=== PATIENT | male | born 1950 | race Caucasian/White ===

== ENCOUNTER 2023-10-06 17:43 | Inpatient (IN) | payer OTHER, SELFPAY ==
[2023-10-06] VITALS (30 sets, daily range): BP systolic 96–147; BP diastolic 64–99; BMI 26.0
--- NOTE | 2023-10-06 11:24 | ED.GENMED ---
History of Present Illness
<Juan Luis Wheat, DO - Last Filed: 10/08/23 14:57>
General
Chief Complaint: Heart Rate Problem
Source: patient
Exam Limitations: none
Time Seen by Provider: 10/06/23 11:10
Travel History
Have you had any contact with someone who has COVID-19?: No
Do you have any symptoms of coronavirus? Fever > 100 degrees, chills, cough, shortness of breath, sore throat, loss of taste or smell, muscle aches, or headache?: No
History of Present Illness
History of Present Illness:
See MDM
Past History
<Juan Luis Wheat, DO - Last Filed: 10/08/23 14:57>
Past History
ED Past Medical History: HTN
ED Past Surgical History: None
Social History
Tobacco: Former smoker
Alcohol: None
Phy Exam
<Juan Luis Wheat, DO - Last Filed: 10/08/23 14:57>
Physical Exam
Physical Exam:
See MDM
Scores
<Juan Luis Wheat, DO - Last Filed: 10/08/23 14:57>
[id number] Score for Afib Stroke Risk
Age in Years (65=0, 65-74=1, >/=75=2): 65-74
Sex (Female=+1): Male
Congestive Heart Failure History (Yes=+1): No
Hypertension History (Yes=+1): Yes
Stroke/TIA/Thromboembolism History (Yes=+2): No
Vascular Disease History (Yes=+1): No
Diabetes Mellitus (Yes=+1): No
Score: 2
Anticoagulation Recommendations: Recommend anticoagulation (as validated in nonvalvular fib)
<Ann Conklin MD - Last Filed: 10/06/23 16:52>
[id number] Score for Afib Stroke Risk
Score: 2
Anticoagulation Recommendations: Recommend anticoagulation (as validated in nonvalvular fib)
Course
<Juan Luis Wheat, DO - Last Filed: 10/08/23 14:57>
Orders/Labs/Results
Orders:
Orders
10/06/23 10:59
Electrocardiogram (*1) Urgent
Reason for Study: Tachycardia
10/06/23 11:00
EKG- Treatment ONCE
10/06/23 11:18
0.9% Sodium Chloride 1000 ml [Nss] 1,000 ml IV BOLUS
Diltiazem 125 mg/125 ml Nss [Cardizem] 125 mg in 125 ml IV NOW
Initial dose in mg/hr, then titrate:: 5
Titrate to keep:: Heart rate 80-100 bpm
Titrate by mg/hr:: 5 mg/hr
Frequency of titrations (minutes):: 15
Maximum dose in mg/hr:: 15
Diltiazem HCl [Cardizem] 20 mg IV NOW STA
10/06/23 11:24
Complete Blood Count/With Diff Urgent
Comprehensive Metabolic Panel Urgent
Magnesium Urgent
Protime/PTT Urgent
TSH Reflex To Free T4 Urgent
10/06/23 12:34
Diltiazem HCl [Cardizem] 20 mg IV NOW STA
10/06/23 13:38
Consult Cardiology [CARDIOLOGY CONSULT] Urgent
Consulting Provider: Scotty Rizzo
Was physician already notified: Yes
10/06/23 13:48
Metoprolol Xl [Toprol Xl] 25 mg PO NOW STA
10/06/23 Dinner
Regular
At Your Request: Full Participation
10/06/23 16:38
Admit/Transfer Patient As Directed
Co-Sign Provider:
Level of Care: Inpatient admission
Assign to:: IVU
Physician / Group: DCA
Diagnosis: atrial flutter w/ RVR
Reason for Hospitalization: atrial flutter w/ RVR
Expected length of stay greater than two midnights?: Yes
ELOS- Estimated Length of Stay in days: 2
I certify the patient meets the requirements for IP care: Yes
10/06/23 16:41
Code Status As Directed
Resuscitation Status: Full Code
10/06/23 17:00
Diltiazem 125 mg/125 ml Nss [Cardizem] 125 mg in 125 ml IV PER PROTOCOL
Initial dose in mg/hr, then titrate:: 5
Titrate to keep:: Heart rate 80-100 bpm
Titrate by mg/hr:: 5 mg/hr
Frequency of titrations (minutes):: 15
Maximum dose in mg/hr:: 15
10/06/23 20:59
Acetaminophen [Tylenol] 650 mg PO Q4HPRN PRN
Apixaban [Eliquis] 5 mg PO BID
10/06/23 20:59
Activity As Directed
Activity Level: Ambulate
Bathroom Privileges
Vital Signs As Directed
Frequency: Per unit guidelines
Weight As Directed
Frequency: Daily
10/06/23 22:00
Atorvastatin [Lipitor] 20 mg PO HS
Losartan [Cozaar] 100 mg PO HS
10/07/23 04:46
Basic Metabolic Panel IN AM
10/07/23 06:00
Echo Andi W/echo Doppler (#17) IN AM
Reason for Study: atrial flutter
Cardiology Consult: Scotty Rizzo
Comment: ANDI/CV
NPO
Allow oral meds: Yes
Allow clear liquids: No
NPO with Ice Chips: No
Abnormal Lab Results
10/06/23
11:24
MCH 33.0 H pg
(27.0-31.0)
MPV 11.4 H fL
(7.4-10.4)
Glucose 117 H mg/dl
(70-99)
10/06/23 11:24
10/06/23 11:24
Vital Signs
Initial and Last Documented VS:
Initial Vital Signs
Temp Pulse Resp BP Pulse Ox
99.4 F 134 18 147/94 96
10/06/23 10:57 10/06/23 10:57 10/06/23 10:57 10/06/23 10:57 10/06/23 10:57
Last Documented Vital Signs
Temp Pulse Resp BP Pulse Ox
97.9 F 69 16 115/82 97
10/07/23 12:57 10/07/23 15:16 10/07/23 12:57 10/07/23 15:16 10/07/23 12:57
<Ann Conklin MD - Last Filed: 10/06/23 16:52>
Orders/Labs/Results
Orders:
Orders
10/06/23 10:59
Electrocardiogram (*1) Urgent
Reason for Study: Tachycardia
10/06/23 11:00
EKG- Treatment ONCE
10/06/23 11:18
0.9% Sodium Chloride 1000 ml [Nss] 1,000 ml IV BOLUS
Diltiazem 125 mg/125 ml Nss [Cardizem] 125 mg in 125 ml IV NOW
Initial dose in mg/hr, then titrate:: 5
Titrate to keep:: Heart rate 80-100 bpm
Titrate by mg/hr:: 5 mg/hr
Frequency of titrations (minutes):: 15
Maximum dose in mg/hr:: 15
Diltiazem HCl [Cardizem] 20 mg IV NOW STA
10/06/23 11:24
Complete Blood Count/With Diff Urgent
Comprehensive Metabolic Panel Urgent
Magnesium Urgent
Protime/PTT Urgent
TSH Reflex To Free T4 Urgent
10/06/23 12:34
Diltiazem HCl [Cardizem] 20 mg IV NOW STA
10/06/23 13:38
Consult Cardiology [CARDIOLOGY CONSULT] Urgent
Consulting Provider: Scotty Rizzo
Was physician already notified: Yes
10/06/23 13:48
Metoprolol Xl [Toprol Xl] 25 mg PO NOW STA
10/06/23 Dinner
Regular
At Your Request: Full Participation
10/06/23 16:38
Admit/Transfer Patient As Directed
Co-Sign Provider:
Level of Care: Inpatient admission
Assign to:: IVU
Physician / Group: DCA
Diagnosis: atrial flutter w/ RVR
Reason for Hospitalization: atrial flutter w/ RVR
Expected length of stay greater than two midnights?: Yes
ELOS- Estimated Length of Stay in days: 2
I certify the patient meets the requirements for IP care: Yes
10/06/23 16:41
Code Status As Directed
Resuscitation Status: Full Code
10/06/23 17:00
Diltiazem 125 mg/125 ml Nss [Cardizem] 125 mg in 125 ml IV PER PROTOCOL
Initial dose in mg/hr, then titrate:: 5
Titrate to keep:: Heart rate 80-100 bpm
Titrate by mg/hr:: 5 mg/hr
Frequency of titrations (minutes):: 15
Maximum dose in mg/hr:: 15
10/06/23 20:59
Acetaminophen [Tylenol] 650 mg PO Q4HPRN PRN
Apixaban [Eliquis] 5 mg PO BID
10/06/23 20:59
Activity As Directed
Activity Level: Ambulate
Bathroom Privileges
Vital Signs As Directed
Frequency: Per unit guidelines
Weight As Directed
Frequency: Daily
10/06/23 22:00
Atorvastatin [Lipitor] 20 mg PO HS
Losartan [Cozaar] 100 mg PO HS
10/07/23 04:46
Basic Metabolic Panel IN AM
10/07/23 06:00
Echo Andi W/echo Doppler (#17) IN AM
Reason for Study: atrial flutter
Cardiology Consult: Scotty Rizzo
Comment: ANDI/CV
NPO
Allow oral meds: Yes
Allow clear liquids: No
NPO with Ice Chips: No
Abnormal Lab Results
10/06/23
11:24
MCH 33.0 H pg
(27.0-31.0)
MPV 11.4 H fL
(7.4-10.4)
Glucose 117 H mg/dl
(70-99)
10/06/23 11:24
10/06/23 11:24
Vital Signs
Initial and Last Documented VS:
Initial Vital Signs
Temp Pulse Resp BP Pulse Ox
99.4 F 134 18 147/94 96
10/06/23 10:57 10/06/23 10:57 10/06/23 10:57 10/06/23 10:57 10/06/23 10:57
Last Documented Vital Signs
Temp Pulse Resp BP Pulse Ox
97.9 F 69 16 115/82 97
10/07/23 12:57 10/07/23 15:16 10/07/23 12:57 10/07/23 15:16 10/07/23 12:57
<Juan Luis Wheat, DO - Last Filed: 10/08/23 14:57>
MDM/Problems Addressed
Differential Diagnosis Includes:
HPI and MDM Narrative:
72-year-old male presenting with asymptomatic tachycardia. Patient states he routinely monitors his vital signs before he goes to bed. Since Friday night, he noted that his heart rate was in the 130s. He denies chest pain or shortness of
breath. Patient denies prior history of A-fib or a flutter and denies prior cardiac evaluation. Patient is very well-appearing nontoxic. Screening EKG confirms a flutter.
Given that he is symptom-free, doubt ACS. Will place on Cardizem bolus and Cardizem drip and look for metabolic disturbances
Physical exam
General: Well appearing and non-toxic
HEENT: protecting airway
Neck: appears supple
CV: No evidence of cyanosis. Tachycardic and regular
Resp: No accessory muscle use
Abd: Non-distended
Extremities: No deformities. No leg edema
Neuro: alert
Psych: Normal affect
Skin: Intact
Problems Addressed including Acute and Chronic Conditions affecting care:
1. New onset atrial flutter
Acuity: acute
Prognosis: unstable
Details: Patient started on Cardizem bolus and Cardizem drip and attempt to chemically cardiovert. Given no symptoms, it is not certain how long he is really been in a flutter. Because of this, he is not a cardioversion candidate
Updates
1:50 PM patient is rate controlled while on the Cardizem drip. Will give dose of Toprol p.o. and give trial off the drip pending cardiology evaluation
Differential Diagnosis (but not limited to): A flutter, hyperthyroidism, hypomagnesemia
Testing considered: Troponin but denies chest pain
Drug therapy (if applicable): OTC meds, please see d/c instruction regarding Rx drugs
Amount and/or Complexity of Data Reviewed
Clinical info obtained from: Patient
External data reviewed: N/A
Labs I independently reviewed (but not limited to): Thyroid within normal limits
Radiology: N/A
Pulse Ox: not hypoxic
EKG independently reviewed: A flutter, left axis, no STEMI
Hot Patcher: Atrial flutter
Critical Care: The high probability of a clinically significant, sudden or life threatening deterioration of the cardiovascular system(s) required my full and direct attention, intervention and personal management. The aggregate critical care time
was 33 minutes. This time is in addition to time spent performing reported procedures but includes the following:
[x] Data Review and interpretation
[x] Patient assessment and monitoring of vital signs
[x] Documentation
[x] Medication orders and management
Risk of Complication:
Social Determinants of health: Good social support
Discussed with other providers: N/A
Escalation of Care includes Admit/Obs: After being observed in the Emergency Department, pt stable for discharge.
Occasional wrong word or 'sound a like' substitutions may have occurred due to the inherent limitations of voice recognition software. Read the chart carefully and recognize, using context, where substitutions have occurred.
<Juan Luis Wheat DO - Last Filed: 10/08/23 14:57>
*Critical Care Note
Total Time (30-74mins, 75-104mins- exclusive of procedures): 33 min
ED Attending Note
<Juan Luis Wheat DO - Last Filed: 10/08/23 14:57>
-
Portions of this chart may have been created with voice recognition software.� Occasional wrong word or��sound alike� substitutions may have occurred due to the inherent limitations of voice recognition software.
Discharge Plan
Departure
Patient Disposition: Admit
Date of Disposition: 10/06/23
Time of Disposition: 16:52
Admit to: Telemetry
Presentation/result/management discussed w/ accepting MD/DO: Hospitalist
Discharge Problem:
New onset atrial flutter
Interventions
Interventions:
*Risk Screen - Suicide Last Done: 10/06/23 10:57
*General Assessment Last Done: 10/06/23 10:57
*Neglect/Abuse Screening Last Done: 10/06/23 10:57
ED- Fall Risk Assessment Last Done: 10/06/23 11:39
*ED COVID-19 Vaccine History Last Done: 10/06/23 21:09
*Nursing Disposition Last Done: 10/06/23 21:15
ED- Cardiac Assessment Last Done: 10/06/23 11:39
ED- Pulmonary Assessment Last Done: 10/06/23 11:39
Discharge Date and Time
Discharge Date/Time: 10/06/23 21:16
[2023-10-06] MEDS: NSS 1000 IV (11:27)
[2023-10-06] MEDS: CARDIZEM 20 MG IV ×2 (11:28→12:52)
[2023-10-06] MEDS: CARDIZEM 125 IV ×2 (11:29→21:33)
[2023-10-06 11:48] LABS: % Basophils 0.4 % (0-2); % Eosinophils 1.1 % (0-6); % Immature Granulocytes 0.4 % (0-0.5); % Lymphocytes 20.8 % (20.5-51.1); % Monocytes 7.7 % (1.7-9.3); % Neutrophils 69.6 % (42.2-75.2); Absolute Eosinophils 0.1 10^3/uL (0-0.7); Absolute Lymphocytes 1.6 10^3/uL (1.2-3.4); Absolute Monocytes 0.6 10^3/uL (0.1-0.6); Absolute Neutrophils 5.5 10^3/uL (1.4-6.5); Hemoglobin 17.8 g/dL (13.0-18.0); Mean Corp Hgb Conc. 36.3 g/dL (33.0-37.0); Mean Corpuscular Volume 90.9 fL (80.0-94.0); Mean Platelet Volume 11.4 fL (7.4-10.4); Nucleated Red Blood Cells % 0 % (-); Platelet Count 273 10^3/uL (130-400); Red Blood Cell Count 5.39 10^6/uL (4.70-6.10); Red Cell Dist. Width 12.3 % (11.5-14.5); White Blood Cell Count 7.9 10^3/uL (4.8-10.8)
[2023-10-06 11:56] LABS: INR 1.06; PT 13.6 Sec (11.4-14.6)
[2023-10-06 11:57] LABS: APTT 29.4 Sec (23.4-35.0)
[2023-10-06 12:02] LABS: ALT (SGPT) 23 U/L (0-50); AST (SGOT) 27 U/L (17-59); Albumin 4.7 g/dl (3.5-5.0); Alkaline Phosphatase 51 U/L (38-126); Blood Urea Nitrogen 14 mg/dl (9-20); Calcium 9.5 mg/dl (8.4-10.2); Carbon Dioxide 27 mmol/L (22-30); Chloride 102 mmol/L (98-107); Estimated Creatinine Clearance 80 ml/min; Glucose 117 mg/dl (70-99); Magnesium 2.1 mg/dl (1.6-2.3); Potassium 4.2 mmol/L (3.5-5.1); Sodium 138 mmol/L (135-145); Total Bilirubin 0.8 mg/dl (0.2-1.3); Total Protein 7.1 g/dl (6.3-8.2); eGFR > 60.00
[2023-10-06 12:32] LABS: TSH Reflex To Free T4 1.87 uIU/ml (0.47-4.68)
--- NOTE | 2023-10-06 13:34 | CON.CAR ---
Addendum entered and electronically signed by Scotty Rizzo DO 10/06/23 16:59:
I saw and examined the patient.
The Mixer Whipped Topping's note was reviewed and I agree with the note.
Comment:
Plan:
Discussed Atrial flutter including rate control, rhythm control and stroke prophylaxis.
IV cardizem for rate control with transition to oral cardizem
Anticoagulation reviewed given CHADSVASC score and pt agreeable
Discussed REMINGTON/cardioversion and pt was agreeable.
Pt to be admitted for rhythm control.
Outpt cardiac follow up.
Reviewed with ER.
Original Note:
Consultation
Consultation Request
Date/Time Consultation Requested: 10/06/2023
Date/Time Consultation Performed: 10/06/2023
Requesting Provider: Juan Luis Wheat
Performing Provider: Tita Simmons PA-C for Dr. Rizzo
Reason for Consultation: New onset atrial flutter
Medical History
-
History of Present Illness:
Patient is a 72-year-old male with past medical history significant for hypertension, hyperlipidemia, prostate cancer status post prostatectomy who presented to emergency department 10/06/2023 with complaints of elevated heart rate and tachycardia.
He reports he checks his blood pressure and heart rate every night and noted his heart rates to be in the 110s to 130s starting Friday evening prompting him to come to emergency department for evaluation. He reports he is an active individual and
walks 3 miles daily as well as does strength training and stretching. He walked a 5K with his 2 granddaughters around [facility] and [facility] on Friday and denied having chest pain, shortness of breath, dizziness, lightheadedness or palpitations. In
the emergency department EKG demonstrated 2-1 atrial flutter at 132 bpm. Laboratory studies unremarkable with stable electrolytes and TSH 1.87. Patient was placed on IV diltiazem drip and was provided 2 boluses with some improvement of heart rate.
PMH:
Hypertension
Hyperlipidemia
Prostate CA status post prostatectomy
Past Medical History
Past Medical History: Other (See HPI)
Past Surgical History: Orthopedic (Shoulder surgery x 2), Urological (Prostatectomy) and Other
Social History
Tobacco: Former Smoker (remote in his early 20's)
Alcohol: Occasional (few drinks on weekends)
Drug: None
Personal: Single
Living: With Family (son)
Employment: Retired
Family History
Family History: CAD (Father of [place] at 65) and Other (Mother of stroke at 74)
Allergies / Home Medications
Allergy/AdvReac Type Severity Reaction Status Date / Time
No Known Allergies Allergy Unverified 10/06/23 10:59
�Medication �Instructions �Recorded �Confirmed �Type
atorvastatin 20 mg tablet (Lipitor) 20 mg PO HS High Cholesterol 10/06/23 10/06/23 History
losartan 50 mg tablet 100 mg PO HS Blood Pressure 10/06/23 10/06/23 History
Review of Systems
-
History Source: Patient
All other systems: Negative unless noted
Physical Exam
Vital Signs
Temp Pulse Resp BP Pulse Ox
99.4 F 82 15 111/85 96
10/06/23 10:57 10/06/23 12:52 10/06/23 12:45 10/06/23 12:52 10/06/23 10:57
GEN: No distress, awake, Ox3
HEENT: supple, anicteric, mmm
LUNGS: CTA, no wheezes/rales
CV: Irreg irreg, S1/S2, no murmur, rubs or gallops
ABD: soft, BS+, NT/ND
EXT: No edema, clubbing or cyanosis
NEURO: Gross non-focal
SKIN: No rash, warm, dry, pink
Lab Results
10/06/23 11:24
10/06/23 11:24
Impression / Plan
-
PCP: Ronnie Calvo
Aerial Photogrammetrist: None sole Dr. Yunior Ross in 2014 for preoperative clearance however has not seen him since
Impression:
Presented 10/06/2023 with palpitations, tachycardia
New onset atrial flutter
Hypertension
Hyperlipidemia
Prostate CA status post prostatectomy
Stress echo 12/20/2022: [place] Protocol: 15:00 minutes, Stress echo images demonstrated no evidence of stress-induced ischemia. Preserved LVEF at rest and hyperdynamic function with the stress of exercise, ECG : Negative. This is a low risk stress study
-Presented 10/06/2023 with palpitations, tachycardia for several day found to be in atrial flutter with rapid ventricular response. He is asymptomatic
-Atrial flutter appears to be new diagnosis likely since Friday. He does report in the past he has noted his heart rates to be in the 90s on occasion with blood pressure check but never this high. He reports his baseline heart rate is in the 60s.
-Heart rates improved with IV Diltiazem bolus x 2 and gtt. Will start on Toprol 25 mg
-[id number] score 2 (HTN and age). Would start Eliquis
-Discussed staying and proceeding w/ REMINGTON/CV tomorrow vs scheduling as outpatient. He is leaning towards admission
-Patient is maintained on losartan as outpatient. This may need to be reduced with initiation of beta-jaime therapy.
-Can assess EF and valves when proceeds w/ REMINGTON
-TSH 1.87
HPI 10/06/2023:
Patient is a 72-year-old male with past medical history significant for hypertension, hyperlipidemia, prostate cancer status post prostatectomy who presented to emergency department 10/06/2023 with complaints of elevated heart rate and tachycardia.
He reports he checks his blood pressure and heart rate every night and noted his heart rates to be in the 110s to 130s starting Friday evening prompting him to come to emergency department for evaluation. He reports he is an active individual and
walks 3 miles daily as well as does strength training and stretching. He walked a 5K with his 2 granddaughters around [facility] and [place] on Friday and denied having chest pain, shortness of breath, dizziness, lightheadedness or palpitations. In
the emergency department EKG demonstrated 2-1 atrial flutter at 132 bpm. Laboratory studies unremarkable with stable electrolytes and TSH 1.87. Patient was placed on IV diltiazem drip and was provided 2 boluses with some improvement of heart rate.
[2023-10-06] MEDS: TOPROL XL 25 MG PO (13:50)
[2023-10-06] MEDS: COZAAR 100 MG PO (21:32)
[2023-10-06] MEDS: ELIQUIS 5 MG PO (21:32)
[2023-10-06] MEDS: LIPITOR 20 MG PO (21:33)
--- NOTE | 2023-10-06 22:04 | PTCARENOTE ---
Pt admitted into 2253- ambulated to the room as a self- with Cardizem running @ 15ml/hr. POC discussed- pt verbalized understanding. Asssessment and admission completed. call slaughter within reach- AFIB booklet provided.
[2023-10-07] VITALS (9 sets, daily range): BP systolic 88–121; BP diastolic 66–87; BMI 25.6
[2023-10-07 05:34] LABS: Blood Urea Nitrogen 13 mg/dl (9-20); Calcium 8.5 mg/dl (8.4-10.2); Carbon Dioxide 28 mmol/L (22-30); Chloride 107 mmol/L (98-107); Estimated Creatinine Clearance 91 ml/min; Glucose 97 mg/dl (70-99); Sodium 135 mmol/L (135-145); eGFR > 60.00
[2023-10-07 06:23] LABS: Hepatitis C Antibody Negative (Negative)
[2023-10-07] MEDS: ELIQUIS 5 MG PO (08:06)
--- NOTE | 2023-10-07 08:26 | W.PN.CARDCBS ---
Addendum entered and electronically signed by Tita Simmons PA-C 10/07/23 17:52:
dictated d/c summary #[id number]
Addendum entered and electronically signed by Dex Garcia MD 10/07/23 11:26:
I saw and examined the patient.
The Education Sales Consultant's note was reviewed and I agree with the note.
Comment:
GEN: No distress, awake
HEENT: supple, anicteric, mmm
LUNGS: CTA, no wheezes/rales
CV: Reg, S1/S2, 1/6 syst LSB, no murmur
ABD: soft, BS+, NT/ND
EXT: No edema
NEURO: Gross non-focal
SKIN: No rash
PLan:
REMINGTON with LVEF 55% and mild-moderate MR, no PATRICE appendage
CV back to sinus rhythm
Cont Eliquis
Start Toprol 25mg daily.
Okay for d/C later today
Original Note:
Today's Communication / Plan
-
REMINGTON/cardioversion today
Consider AV georgie jaime once heart rate in sinus rhythm evaluated
Continue Eliquis
Anticipate discharge following cardioversion later today
Will arrange for outpatient follow-up
Impression / Plan
-
PCP: Ronnie Calvo
Molder Wax Ball: None sole Dr. Yunior Ross in 2014 for preoperative clearance however has not seen him since
Impression:
Presented 10/06/2023 with palpitations, tachycardia
New onset atrial flutter
Hypertension
Hyperlipidemia
Prostate CA status post prostatectomy
Stress echo 12/20/2022: [place] Protocol: 15:00 minutes, Stress echo images demonstrated no evidence of stress-induced ischemia. Preserved LVEF at rest and hyperdynamic function with the stress of exercise, ECG : Negative. This is a low risk stress study
-Presented 10/06/2023 with palpitations, tachycardia for several day found to be in atrial flutter with rapid ventricular response. He is asymptomatic
-Atrial flutter appears to be new diagnosis likely since Friday. He does report in the past he has noted his heart rates to be in the 90s on occasion with blood pressure check but never this high. He reports his baseline heart rate is in the 60s.
-Remains in Atrial flutter on Diltiazem gtt at 15 mg/hr. Heart rates reasonable at rest but accelerated with activity
-Plan is for REMINGTON/CV today
-Will need AV georgie blocking agent post CV. Reports baseline heart rates are in the 60's bpm. Await HR after CV for recommendations.
-[id number] score 2 (HTN and age). Continue Eliquis 5 mg BID (new this admission)
-T/c outpatient evaluation with EPS for Atrial flutter ablation
-Hypertension: Patient is maintained on losartan as outpatient. This may need to be reduced with initiation of AV georgie jaime.
-Can assess EF and valves when proceeds w/ REMINGTON
-TSH 1.87
HPI 10/06/2023:
Patient is a 72-year-old male with past medical history significant for hypertension, hyperlipidemia, prostate cancer status post prostatectomy who presented to emergency department 10/06/2023 with complaints of elevated heart rate and tachycardia.
He reports he checks his blood pressure and heart rate every night and noted his heart rates to be in the 110s to 130s starting Friday evening prompting him to come to emergency department for evaluation. He reports he is an active individual and
walks 3 miles daily as well as does strength training and stretching. He walked a 5K with his 2 granddaughters around [facility] and [facility] on Friday and denied having chest pain, shortness of breath, dizziness, lightheadedness or palpitations. In
the emergency department EKG demonstrated 2-1 atrial flutter at 132 bpm. Laboratory studies unremarkable with stable electrolytes and TSH 1.87. Patient was placed on IV diltiazem drip and was provided 2 boluses with some improvement of heart rate.
Progress Note - Molder Wax Ball
Subjective
Date of Service: October 07, 2023
Patient seen and examined. Patient sitting in bed resting comfortably. Continues to note elevated heart rates but denies chest pain, shortness of breath, dizziness or lightheadedness.
Objective
Labs:
10/06/23 11:24
10/07/23 04:46
Labs
Hgb 17.8 g/dL (13.0-18.0) 10/06/23 11:24
Hct 49.0 % (39.0-52.0) 10/06/23 11:24
Plt Count 273 10^3/uL (130-400) 10/06/23 11:24
PT 13.6 Sec (11.4-14.6) 10/06/23 11:24
INR 1.06 10/06/23 11:24
APTT 29.4 Sec (23.4-35.0) 10/06/23 11:24
Sodium 135 mmol/L (135-145) 10/07/23 04:46
Potassium 4.0 mmol/L (3.5-5.1) 10/07/23 04:46
BUN 13 mg/dl (9-20) 10/07/23 04:46
Creatinine 0.7 mg/dL (0.7-1.3) 10/07/23 04:46
Glucose 97 mg/dl (70-99) 10/07/23 04:46
Vital Signs and I&O:
Vital Signs
Temp Pulse Resp BP Pulse Ox
97.8 F 101 16 90/68 95
10/07/23 06:59 10/07/23 07:02 10/07/23 06:59 10/07/23 07:02 10/07/23 06:59
Vital Signs
Temp Pulse Resp BP Pulse Ox
97.8 F 101 16 90/68 95
10/07/23 06:59 10/07/23 07:02 10/07/23 06:59 10/07/23 07:02 10/07/23 06:59
Physical Exam
Physical Exam
GEN: No distress, awake, Ox3
HEENT: supple, anicteric, mmm
LUNGS: CTA, no wheezes/rales
CV: Irreg irreg, S1/S2, no murmur, rubs or gallops
ABD: soft, BS+, NT/ND
EXT: No edema, clubbing or cyanosis
NEURO: Gross non-focal
SKIN: No rash, warm, dry, pink
--- NOTE | 2023-10-07 08:48 | PTCARENOTE ---
Received patient resting in bed, remains in A flutter. Cardizem infusing at 15mg/hr, HR 92. Patient is NPO x meds, for REMINGTON/CV this morning. Denies any pain, shortness of breath or palpitations.
--- NOTE | 2023-10-07 10:48 | PTCARENOTE ---
Patient sent for REMINGTON/CV.
--- NOTE | 2023-10-07 11:26 | ITS.CL.CARDI ---
Eye Surgeon - Cardioversion
Cardioversion
Procedure Report:
Date of Procedure:
Procedure: Cardioversion
Indication: Symptomatic atrial flutter
Performing Physician: Chino Garcia MD
Technique: The patient was brought to the holding area. Signed informed consent was obtained. A time out was called and performed. The patient was anesthetized by the anesthesia service. Anticoagulation status was reviewed and appropriate. R2 pads
were placed anteriorly and posteriorly. A 200 J synchronized biphasic shock restored normal sinus rhythm without significant bradycardia. There were no complications.
Conclusion: Uncomplicated cardioversion from atrial flutter to sinus rhythm.
Recommendation: Routine post cardioversion care. Continue mcfp anticoagulation.
--- NOTE | 2023-10-07 12:50 | PTCARENOTE ---
Patient returned from EP lab after successful cardioversion. Patient in SR, 108/82. Denies any pain or discomfort, anxious to go home. Ordering lunch, will continue to monitor.
--- NOTE | 2023-10-07 13:49 | CM ---
Chart reviewed. Patient is independent of ADLS, lives with his son in a [address], 1st floor set up, 0 DME. Patient currently with no discharge needs. CM to follow
--- NOTE | 2023-10-07 13:50 | CM ---
Pricing on Eliquis through patient's pharmacy is $47 a month. I placed a free 30 day coupon in the chart
--- NOTE | 2023-10-07 14:44 | W.DS.TRANS ---
DC Summary - Gas Engine Repairer
-
Discharge Instructions:
Sleep Apnea Risk Intermediate
Discharge Diagnosis/Procedures Atrial flutter
Diet No restrictions
Activity No restrictions
Driving Restrictions No driving for 24 hours
Bathing Restrictions None
Instructions:
Stand-Alone Forms:
Changes to Home Medications: Yes
Discharge Medications:
DC Medications w/original date entered in [employer]
atorvastatin 20 mg tablet (Lipitor) 20 mg PO HS High Cholesterol 10/06/23
losartan 50 mg tablet 100 mg PO HS Blood Pressure 10/06/23
apixaban 5 mg tablet (Eliquis) 5 mg PO BID #60 tabs 10/07/23
metoprolol succinate 25 mg tablet,extended release 24 hr 25 mg PO DAILY #90 tabs 10/07/23
Home Medication Changes
Continue Losartan 100 mg daily at bedtime
New to Eliquis 5 mg twice a day
New to Toprol 25 mg in the morning
Continue Atorvastatin
Pending Results: No
Total time spent discharging patient (in min): 32
[2023-10-07] MEDS: TOPROL XL 25 MG PO (15:16)
--- NOTE | 2023-10-07 15:27 | PTCARENOTE ---
Patient ambulating in the halls, remains in SR and anxious to go home. Seen by cardiology and is ok for discharge. Patient discharged home with his , given dose of toprol as ordered. States his understanding of new prescriptions and follow up
appointment.
== END 2023-10-07 16:21 | disposition home or self-care (01) | DRG 310 ==
LOC: IVU 17:43
PROVIDERS: Internal Medicine Cardiovascular Disease; Physician Assistant Medical; ADMITTING PHYSICIAN Nuclear Medicine Nuclear Cardiology; EMERGENCY PHYSICIAN Student in an Organized Health Care Education/Training Program; FAMILY PHYSICIAN Family Medicine
PROC: 5A2204Z Restoration of Cardiac Rhythm, Single (ICD-10-PCS; 2023-10-07)
PROC: B24BZZ4 Ultrasonography of Heart with Aorta, Transesophageal (ICD-10-PCS; 2023-10-07)
DX: I48.92 Unspecified atrial flutter (principal); I10 Essential (primary) hypertension; E78.00 Pure hypercholesterolemia, unspecified; Z85.46 Personal history of malignant neoplasm of prostate; Z79.01 Long term (current) use of anticoagulants
CPT/HCPCS: 80048; 80053; 83735; 84443; 85025; 85610; 85730; 86803; 92960; 93005; 93312; 93320; 93325; 96361; 96374; 99291

== ENCOUNTER 2023-11-24 11:39 | Emergency (ER) | payer OTHER, SELFPAY ==
[2023-11-24] VITALS (47 sets, daily range): BP systolic 89–148; BP diastolic 59–107; BMI 25.1
[2023-11-24 12:06] LABS: % Basophils 0.7 % (0-2); % Eosinophils 0.8 % (0-6); % Immature Granulocytes 0.5 % (0-0.5); % Lymphocytes 33.3 % (20.5-51.1); % Monocytes 7.3 % (1.7-9.3); % Neutrophils 57.4 % (42.2-75.2); Absolute Basophils 0.1 10^3/uL (0-0.2); Absolute Eosinophils 0.1 10^3/uL (0-0.7); Absolute Immature Granulocytes 0.1 10^3/uL (0-0.05); Absolute Monocytes 0.7 10^3/uL (0.1-0.6); Absolute Neutrophils 5.2 10^3/uL (1.4-6.5); Hematocrit 46.5 % (39.0-52.0); Hemoglobin 17.4 g/dL (13.0-18.0); Mean Corp Hgb Conc. 37.4 g/dL (33.0-37.0); Mean Corpuscular Hgb 32.5 pg (27.0-31.0); Mean Corpuscular Volume 86.8 fL (80.0-94.0); Mean Platelet Volume 11.8 fL (7.4-10.4); Nucleated Red Blood Cells % 0 % (-); Platelet Count 269 10^3/uL (130-400); Red Blood Cell Count 5.36 10^6/uL (4.70-6.10); Red Cell Dist. Width 12.1 % (11.5-14.5); White Blood Cell Count 9.1 10^3/uL (4.8-10.8)
[2023-11-24 12:32] LABS: ALT (SGPT) 21 U/L (0-50); AST (SGOT) 22 U/L (17-59); Albumin 4.6 g/dl (3.5-5.0); Alkaline Phosphatase 57 U/L (38-126); Blood Urea Nitrogen 15 mg/dl (9-20); Calcium 9.9 mg/dl (8.4-10.2); Carbon Dioxide 23 mmol/L (22-30); Chloride 104 mmol/L (98-107); Glucose 99 mg/dl (70-99); Potassium 3.8 mmol/L (3.5-5.1); Sodium 140 mmol/L (135-145); Total Bilirubin 1.1 mg/dl (0.2-1.3); Total Protein 7.1 g/dl (6.3-8.2); eGFR > 60.00
--- NOTE | 2023-11-24 13:11 | ED.GENMED ---
History of Present Illness
General
Chief Complaint: Heart Rate Problem
Source: patient
Exam Limitations: none
Time Seen by Provider: 11/24/23 12:34
Nursing documentation reviewed up to this point in time: agreed with
Travel History
Have you had any contact with someone who has COVID-19?: No
Do you have any symptoms of coronavirus? Fever > 100 degrees, chills, cough, shortness of breath, sore throat, loss of taste or smell, muscle aches, or headache?: No
History of Present Illness
History of Present Illness:
Patient diagnosed with new onset atrial flutter in September 2023, and started on metoprolol and Eliquis, presents to ED secondary to 3-day history of persistent elevated heart rate, associated with dizziness, shortness of breath, and fatigue. Patient
spoke with mining engineer office at onset of his symptoms 3 days ago, and his metoprolol medication was increased, without improvement symptoms. Denies headache. Denies dizziness. Denies chest pain. Denies vomiting or diarrhea. Denies leg pain or
swelling. Denies back pain.
Past History
Past History
ED Past Medical History: HTN
ED Past Surgical History: None
Social History
Tobacco: Former smoker
Alcohol: None
Review of Systems
Review of Systems
Allergies reviewed?: Yes
All Other Systems: ROS reviewed and negative except as documented in HPI and ROS
Constitutional: Reports no symptoms
EENT: Reports no symptoms
Respiratory: Reports no symptoms
Cardiac: Reports no symptoms
ABD/GI: Reports no symptoms
Musculoskeletal: Reports no symptoms
Skin: Reports no symptoms
Neurological: Reports no symptoms
Phy Exam
Physical Exam
Physical Exam:
Physical Exam
General: mild distress, not acutely ill. afebrile
Head: nc/at. eomi
Neck: supple. normal range of motion.
Heart: irregularly irregular, tachycardic, no murmur. equal radial pulses.
Lungs: no acute respiratory distress. clear bilaterally
Abdomen: normal bowel sounds. not tender.
Neuro: alert and oriented. no focal neurological deficits
Skin: no rash
Psychiatric: well kept. interactive and cooperative
Extremities: no edema. no calf tenderness.
Course
Orders/Labs/Results
Orders:
Orders
11/24/23 11:42
Electrocardiogram (*1) Urgent
Reason for Study: Tachycardia
EKG- Treatment ONCE
11/24/23 11:56
CMP [Comprehensive Metabolic Panel] Urgent
Magnesium Urgent
Comment: ADD ON
NT-proBNP Urgent
Comment: ADD ON
11/24/23 11:57
Complete Blood Count/With Diff Urgent
11/24/23 12:37
Add On- LAB Urgent
Tests Added?: magnesium
11/24/23 12:45
Add On- LAB Urgent
Tests Added?: ProBNP
CR Chest - 2 Views Urgent
Comment:
Reason For Exam: sob
11/24/23 13:11
CT Head W/o Iv Contrast Urgent
Comment:
Reason For Exam: mental status change
11/24/23 14:18
0.9% Sodium Chloride 250 ml [Nss] 250 ml IV BOLUS
Diltiazem HCl [Cardizem] 10 mg IV NOW STA
11/24/23 14:30
Diltiazem 125 mg/125 ml Nss [Cardizem] 125 mg in 125 ml IV PER PROTOCOL
Initial dose in mg/hr, then titrate:: 5
Titrate to keep:: Heart rate 80-100 bpm
Titrate by mg/hr:: 5 mg/hr
Frequency of titrations (minutes):: 15
Maximum dose in mg/hr:: 15
11/24/23 14:50
Diltiazem HCl [Cardizem] 25 mg .ROUTE .STK-MED ONE
11/24/23 15:02
Diltiazem HCl [Cardizem] 20 mg IV NOW STA
11/24/23 15:03
0.9% Sodium Chloride 250 ml [Nss] 250 ml IV BOLUS
Diltiazem HCl [Cardizem] 25 mg .ROUTE .STK-MED ONE
11/24/23 18:38
Apixaban [Eliquis] 5 mg PO NOW STA
11/24/23 18:51
Propofol [Diprivan] 20 ml .ROUTE .STK-MED
11/24/23 19:05
Electrocardiogram (*1) Urgent
Reason for Study: Chest Pain
EKG- Treatment ONCE
Abnormal Lab Results
11/24/23
11:57
MCH 32.5 H pg
(27.0-31.0)
MCHC 37.4 H g/dL
(33.0-37.0)
MPV 11.8 H fL
(7.4-10.4)
Abs Immat Gran (auto) 0.1 H 10^3/uL
(0-0.05)
Absolute Monos (auto) 0.7 H 10^3/uL
(0.1-0.6)
11/24/23 11:57
11/24/23 11:56
Vital Signs
Initial and Last Documented VS:
Initial Vital Signs
Temp Pulse Resp BP Pulse Ox
97.9 F 131 18 148/103 100
11/24/23 11:43 11/24/23 11:43 11/24/23 11:43 11/24/23 11:43 11/24/23 11:43
Last Documented Vital Signs
Temp Pulse Resp BP Pulse Ox
98.2 F 55 12 104/77 96
11/24/23 19:49 11/24/23 20:00 11/24/23 20:00 11/24/23 20:00 11/24/23 20:00
Procedures
Moderate Sedation
ASA Risk Score: Class I
Chart and allergies reviewed: Yes
Consent for anesthesia obtained: Yes
Time out completed (validating right patient & procedure): Yes
Moderate Sedation Start Time(when first medication is given): 17:09
History of difficult intubation: No
Airway free of obstruction: Yes
Patient has a gag reflex: Yes
Patient is able to open mouth: Yes
Patient has no dentures: Yes
Patient has no loose teeth: Yes
Medication administered by Provider during Moderate Sedation: IV Propofol (mg)
Total dose administered: 60
Time drug administered: :
Moderate Sedation Procedure End Time: :
Cardioversion
Indication:: Other (rapid a.flutter)
Performed by:: Tom Philip M.D.
Synchronized?: Yes
Energy Used: 200 joules
Number of attempts: 1
Successful?: Yes
Complications: None
ASA Risk Score: Class I
Any reaction or bad outcome to prior sedation/anesthesia?: No history of a reaction
Sedation level to be attained: moderate
Chart and allergies reviewed: Yes
Patient reassessed prior to sedation: Yes
Time out completed at (validating right patient & procedure): 17:09
History of difficult intubation: No
Airway free of obstruction: Yes
Patient has a gag reflex: Yes
Patient is able to open mouth: Yes
Patient has no dentures: Yes
Patient has no loose teeth: Yes
Medication administered by Provider during Moderate Sedation: IV Propofol (mg)
Total dose administered: 60
Time drug administered: :
Start Time: 17:09
Stop Time: :19
MDM/Problems Addressed
MDM/Problems Addressed:
History and exam consistent with recurrent rapid atrial flutter. Patient with symptoms related to elevated heart rate, i.e. dizziness/shortness of breath.
Patient given Cardizem bolus and started on Cardizem infusion with improvement heart rate, as well as symptoms.
Discussed with on-call mining engineer, Dr. Figueroa. Patient consented for cardioversion.
Procedural consent on the chart.
Cardioversion successful, confirmed with repeat EKG. HR remains mid 50s - low 60s post-conversion, without any symptoms.
Discussed with again. Does not recommend any medication adjustments at this time. Advises outpatient cardiology evaluation.
Pt will f/u with cardiology as outpatient.
Critical care statement: A total of 40 minutes of critical care time was provided for this patient. This includes management of unstable vital signs, evaluation of the patient at bedside, reviewing the patient's pertinent medical records, discussion
with consultants, review of old EKGs and review of pertinent medical records. This time with separate from time utilized to perform the aforementioned documented procedures
*EKG
Interpreted by ED Provider?: Yes
EKG Intrepretation Date: 11/24/23
Heart Rate: 131
Rate: normal
Rhythm: atrial flutter
[place]: left axis deviation
Interval: normal interval
*Critical Care Note
Total Time (30-74mins, 75-104mins- exclusive of procedures): 40 min
ED Attending Note
-
Portions of this chart may have been created with voice recognition software.� Occasional wrong word or��sound alike� substitutions may have occurred due to the inherent limitations of voice recognition software.
Discharge Plan
Departure
Patient Disposition: Home (Routine Discharge)
Date of Disposition: 11/24/23
Time of Disposition: 19:40
Patient with high blood pressure during this ER visit?: No
Discharge Problem:
Atrial flutter with rapid ventricular response
Instructions: Atrial Flutter (DC)
Prescriptions:
No Action
losartan 50 mg Tablet
100 mg PO HS
atorvastatin [Lipitor] 20 mg Tablet
20 mg PO HS
metoprolol succinate 25 mg Tablet Extended Release 24 Hr
25 mg PO DAILY Qty: 90 3RF
Eliquis 5 mg Tablet
5 mg PO BID Qty: 60 5RF
Referrals:
Ronnie Calvo MD [Family Provider] -
Ronnie Foster MD [Active] -
Activity Restrictions/Additional Instructions:
As discussed, please call your mining engineer office tomorrow for an outpatient evaluation.
Interventions
Interventions:
*Risk Screen - Suicide Last Done: 11/24/23 11:43
*General Assessment Last Done: 11/24/23 12:55
*Neglect/Abuse Screening Last Done: 11/24/23 11:43
*ED COVID-19 Vaccine History Last Done: 11/24/23 11:43
ED- Cardiac Assessment Last Done: 11/24/23 13:19
ED- Pulmonary Assessment Last Done: 11/24/23 13:19
Discharge Date and Time
Print Language: [id number]
[2023-11-24 13:24] LABS: NT-proBNP 1560 pg/ml
[2023-11-24] MEDS: NSS 250 IV ×2 (14:20→15:05)
[2023-11-24] MEDS: CARDIZEM 10 MG IV ×3 (14:52→15:28)
[2023-11-24] MEDS: CARDIZEM 125 IV (14:55)
[2023-11-24] MEDS: ELIQUIS 5 MG PO (18:50)
== END 2023-11-24 20:27 | disposition home or self-care (01) ==
LOC: EMR 11:39
PROVIDERS: Emergency Medicine; EMERGENCY PHYSICIAN Emergency Medicine; FAMILY PHYSICIAN Family Medicine
DX: I48.92 Unspecified atrial flutter (principal); I10 Essential (primary) hypertension; Z79.01 Long term (current) use of anticoagulants; Z87.891 Personal history of nicotine dependence
CPT/HCPCS: 99284; 92960; 99152; 96374; 96376; 70450; 71046; 80053; 83735; 83880; 85025; 93005

== ENCOUNTER 2024-03-17 06:07 | Day surgery (SDC) | payer OTHER, SELFPAY ==
[2024-03-17] VITALS (10 sets, daily range): BP systolic 101–132; BP diastolic 64–82; BMI 25.4
[2024-03-17] MEDS: TYLENOL 1000 MG PO (07:11)
--- NOTE | 2024-03-17 13:26 | ITS.CL.ABL ---
Copy Manager - Ablation
Ablation
Procedure Report:
ELECTROPHYSIOLOGIC STUDY AND POSSIBLE ABLATION
Date of Procedure: 03/17/24
Primary Care Provider: Dr. Ronnie Calvo
INDICATION:
1. Atrial tachyarrhythmia, symptomatic
HISTORY:
Please refer to office history and physical exam
PROCEDURE:
Ultrasound Guidance performed by ga was utilized for femoral venous Vascular Access b/l. Vascular US demonstrated the typical vascular anatomy.
A decapolar mapping catheter was placed into the CS for LA mapping/recording. A second decapolar catheter was positioned along the lateral RA at the TV annulus. A mapping catheter was positioned at the bundle of HIS for His bundle recording.
His Bundle recording was mapped and tagged via the 3-D mapping system ([employer]). Mapping and ablation catheter was positioned and RV recordings were obtained and RV pacing was performed.
Programmed electrical stimulation was performed but atrial arrhythmia could not be induced. With programmed electrical stimulation there is the finding of dual AV georgie physiology and induction of up to 2 AV georgie echoes but no sustained
arrhythmias based on this mechanism. Based on evaluation of his outpatient ECG of his clinical tachyarrhythmia the arrhythmia is likely typical counterclockwise right atrial flutter. As was discussed with the patient in the office if he were
noninducible and empiric CTI ablation would be performed. Therefore, since sustained atrial arrhythmia could not be induced and CTI ablation was performed based on CTI flutter being the most likely diagnosis.
After determination of a target arrhythmia, a deflectable tip mapping/ablation catheter (4 mm irrigated tip contact sensing) was advanced to the inferior aspect of the tricuspid annulus (isthmus of atrial tissue between the annulus and inferior
vena caval orifice). RF was used to try to interrupt a critical portion of the flutter circuit. RF applications were given from the 5 to 7 o'clock positions along the tricuspid annulus during sinus rhythm. The catheter was initially placed on the
ventricular aspect of the annulus, where energy delivery was begun. A series of discrete applications were made along a line between the annulus and inferior vena caval orifice. At the conclusion of RF delivery, pacing from both the lateral as
well as medial aspect of the tricuspid annulus revealed a discontinuity in the wavefront of atrial activation along the tricuspid annulus-IVC isthmus; sites medial to 6 o'clock were activated from the medial aspect, and those lateral to 6 o'clock
were activated from the lateral aspect. This suggests that the flutter circuit utilizing this isthmus as a critical portion of its propagation had been interrupted. Double potentials (75 ms) were recorded along the entirety of the CTI RF line.
COMPLICATIONS: [ ] None
SUMMARY:
- Mapping and ablation of SVT
- EP study with coronary sinus catheter
- 3-dimensional electroanatomical mapping ([employer])
- Mapping and ablation of supraventricular tachycardia
RECOMMENDATIONS:
1: Continue oral anticoagulation for the next 30 days then discontinue.
2: Outpatient follow-up with ga July 06, 2024
Copy to:
Dr. Ronnie Calvo
--- NOTE | 2024-03-17 13:47 | W.PN.UPDATE ---
Update Note
Progress Note Update
Pt seen post AFlutter ablation. Right groin with no ht/bleeding, oob ambulating, urinating without difficulty. Post EKG NSR 68, no acute changes. Resume eliquis tonight, and will remain on for 30 days then stop. Continue other meds as before.
Followup at [facility] as scheduled. Home today if groin site/tele remain stable.
== END 2024-03-17 14:00 | disposition home or self-care (01) ==
LOC: CATH 06:07
PROVIDERS: ATTENDING PHYSICIAN Internal Medicine Cardiovascular Disease; FAMILY PHYSICIAN Family Medicine
DX: I48.3 Typical atrial flutter (principal); I47.19 Other supraventricular tachycardia; I08.1 Rheumatic disorders of both mitral and tricuspid valves; I10 Essential (primary) hypertension; E78.5 Hyperlipidemia, unspecified; Z85.46 Personal history of malignant neoplasm of prostate; Z87.891 Personal history of nicotine dependence; Z79.01 Long term (current) use of anticoagulants
CPT/HCPCS: C1730 ×2; C1894; C2630; C1892; C1893; 93005; 93653

== ENCOUNTER 2024-09-30 10:01 | Emergency (ER) | payer OTHER, SELFPAY ==
[2024-09-30 10:02] VITALS: BMI 25.6
[2024-09-30 10:06] VITALS: BP 108/78
--- NOTE | 2024-09-30 11:07 | ED.GENMED ---
History of Present Illness
General
Chief Complaint: Heart Rate Problem
Source: patient
Exam Limitations: none
Time Seen by Provider: 09/30/24 10:48
History of Present Illness
History of Present Illness:
73-year-old male presents for evaluation of rapid heart rate. He has a history of atrial tachycardia. He had an ablation performed in March of last year not currently on any coagulation. He had the onset of a rapid heart rate today around 930
he felt lightheaded and short of breath. He was instructed to take an additional dose of metoprolol which she did. It seemed to not kick in as it has in the past. He was even symptomatic en route however at the time of the EKG he felt that he
went back to normal. He currently denies chest pain or shortness of breath or palpitations. At 1 point his heart rate today was 156. He is followed by cardiology here. No other complaints at this time
Past History
Past History
ED Past Medical History: HTN
ED Past Surgical History: None
Social History
Tobacco: Former smoker
Alcohol: None
Phy Exam
Physical Exam
Physical Exam:
General: Well-appearing male no acute respiratory distress
HEENT normocephalic atraumatic
Heart: Regular rate and rhythm
Lungs: Clear no wheeze
Extremities: No cyanosis
Course
Orders/Labs/Results
Orders:
Orders
09/30/24 10:02
Electrocardiogram (*1) Urgent
Reason for Study: Palpitations
EKG- Treatment ONCE
09/30/24 11:19
Complete Blood Count/With Diff Urgent
Comprehensive Metabolic Panel Urgent
Abnormal Lab Results
09/30/24
11:19
MCH 32.6 H pg
(27.0-31.0)
MPV 11.4 H fL
(7.4-10.4)
Glucose 107 H mg/dl
(70-99)
09/30/24 11:19
09/30/24 11:19
Vital Signs
Initial and Last Documented VS:
Initial Vital Signs
Temp Pulse Resp BP Pulse Ox
97.8 F 72 20 108/78 99
09/30/24 10:06 09/30/24 10:06 09/30/24 10:06 09/30/24 10:06 09/30/24 10:06
Last Documented Vital Signs
Temp Pulse Resp BP Pulse Ox
97.8 F 58 10 111/75 96
09/30/24 10:06 09/30/24 12:15 09/30/24 12:15 09/30/24 12:00 09/30/24 12:15
MDM/Problems Addressed
Differential Diagnosis Includes:
Patient presented with onset of rapid heart rate he took an extra metoprolol. It was not helping as quickly as it has in the past so he called and was recommended by his box order person office to come here.
EKG through triage here shows sinus rhythm with rate of 65 no ischemic changes. Currently normal sinus rhythm on cardiac sonographer
*Critical Care Note
Total Time (30-74mins, 75-104mins- exclusive of procedures): Not Applicable
Update Note
Update Note:
Patient was kept on monitor there was no arrhythmias noted he is asymptomatic throughout his stay. Labs checked and are negative for anemia or electrolyte abnormality. Patient has been stable. I suspect he had an atrial tachycardia that was
abated with his use of metoprolol. He will continue to do this if needed but follow-up with his box order person
ED Attending Note
-
Portions of this chart may have been created with voice recognition software.� Occasional wrong word or��sound alike� substitutions may have occurred due to the inherent limitations of voice recognition software.
Discharge Plan
Departure
Patient Disposition: Home (Routine Discharge)
Date of Disposition: 09/30/24
Time of Disposition: 12:22
Patient with high blood pressure during this ER visit?: No
Discharge Problem:
Palpitations
Instructions: Palpitations (DC)
Prescriptions:
No Action
losartan 50 mg Tablet
100 mg PO HS
atorvastatin [Lipitor] 20 mg Tablet
20 mg PO HS
Eliquis 5 mg Tablet
5 mg PO BID Qty: 60 5RF
metoprolol succinate 25 mg tablet extended release 24 hr
25 mg PO HS
Referrals:
Ronnie Calvo MD [Family Provider] -
Activity Restrictions/Additional Instructions:
Continue your current medications. Continue your use of metoprolol as needed for rapid heart rate. Follow-up with your box order person otherwise
Interventions
Interventions:
*Risk Screen - Suicide Last Done: 09/30/24 10:06
*General Assessment Last Done: 09/30/24 10:06
*Neglect/Abuse Screening Last Done: 09/30/24 10:06
*ED- Fall Risk Assessment Last Done: 09/30/24 11:15
*Nursing Disposition Last Done: 09/30/24 12:17
ED- Cardiac Assessment Last Done: 09/30/24 11:15
ED- Pulmonary Assessment Last Done: 09/30/24 11:15
Discharge Date and Time
Print Language: MAORI
[2024-09-30 11:10] VITALS: BP 137/87
[2024-09-30 11:30] VITALS: BP 114/79
[2024-09-30 11:33] LABS: % Basophils 0.4 % (0-2); % Immature Granulocytes 0.3 % (0-0.5); % Lymphocytes 23.7 % (20.5-51.1); % Monocytes 6.8 % (1.7-9.3); % Neutrophils 67.8 % (42.2-75.2); Absolute Eosinophils 0.1 10^3/uL (0-0.7); Absolute Lymphocytes 1.6 10^3/uL (1.2-3.4); Absolute Monocytes 0.5 10^3/uL (0.1-0.6); Absolute Neutrophils 4.7 10^3/uL (1.4-6.5); Hematocrit 44.6 % (39.0-52.0); Hemoglobin 15.9 g/dL (13.0-18.0); Mean Corp Hgb Conc. 35.7 g/dL (33.0-37.0); Mean Corpuscular Hgb 32.6 pg (27.0-31.0); Mean Corpuscular Volume 91.4 fL (80.0-94.0); Mean Platelet Volume 11.4 fL (7.4-10.4); Nucleated Red Blood Cells % 0 % (-); Platelet Count 217 10^3/uL (130-400); Red Blood Cell Count 4.88 10^6/uL (4.70-6.10); White Blood Cell Count 6.9 10^3/uL (4.8-10.8)
[2024-09-30 11:49] LABS: ALT (SGPT) 27 U/L (0-50); AST (SGOT) 23 U/L (17-59); Alkaline Phosphatase 56 U/L (38-126); Blood Urea Nitrogen 14 mg/dl (9-20); Calcium 9.1 mg/dl (8.4-10.2); Carbon Dioxide 30 mmol/L (22-30); Chloride 104 mmol/L (98-107); Estimated Creatinine Clearance 78 ml/min; Glucose 107 mg/dl (70-99); Potassium 4.2 mmol/L (3.5-5.1); Sodium 141 mmol/L (135-145); Total Bilirubin 0.8 mg/dl (0.2-1.3); Total Protein 6.4 g/dl (6.3-8.2); eGFR > 60.00
[2024-09-30 12:00] VITALS: BP 111/75
== END 2024-09-30 12:23 | disposition home or self-care (01) ==
LOC: EMR 10:01
PROVIDERS: Physician Assistant; EMERGENCY PHYSICIAN Emergency Medicine; FAMILY PHYSICIAN Family Medicine
DX: R00.2 Palpitations (principal); I10 Essential (primary) hypertension; Z87.891 Personal history of nicotine dependence; Z79.899 Other long term (current) drug therapy
CPT/HCPCS: 99284; 80053; 85025; 93005

== ENCOUNTER → 2025-03-02 08:05 | Outpatient (REF) | payer OTHER, SELFPAY | LOC: RCS 08:05 | PROVIDERS: ATTENDING PHYSICIAN Internal Medicine Cardiovascular Disease; FAMILY PHYSICIAN Family Medicine | DX: I48.3 Typical atrial flutter (principal) | CPT/HCPCS: 93306 ==